=== PATIENT | male | born 1995 | race Caucasian/White ===

== ENCOUNTER 2023-04-07 09:40 | Day surgery (SDC) | payer BC ==
[2023-04-02 11:51] VITALS: BMI 25.1
--- NOTE | 2023-04-06 10:35 | P.HPOR ---
History of Present Illness H&P Date: 04/06/23 Subjective: This is a 28 year old male that presents today for initial evaluation regarding a 3 month history of a progressively increasing in size soft tissue mass located on the dorsal aspect of the ring finger. He notes the area on the back of the ring finger has become tender at night time and feels very tight due to the size of the mass. He denies any injury or inciting event. He works for a [employer] business. Physical Examination: RUE: AIN/PIN/Radial/Ulnar/Median motor intact. Radial/Ulnar/Median SILT. 2+/4 Radial/Ulnar pulses palpated. 5/5 APB, 5/5 FDI. Negative Finkelsteins, negative CMC grind, negative Durkan's compression. 2cm round soft tissue mass that is mobile on dorsal aspect of ring finger proximal phalanx. Able to make a full fist. Imaging: X-Rays of the right hand 3V taken in office today demonstrate no abnormality Impression: 1.) Right ring finger soft tissue mass Plan: Diagnosis and treatment options were discussed with the patient. We discussed he has a soft tissue mass present on the dorsal aspect of his ring finger that is becoming increasingly bothersome and he would like to proceed with right ring finger soft tissue mass excision. Risks and benefits of surgery including bleeding, infection, damage to surrounding tissue, need for further surgery, residual numbness were discussed and the patient wished to go forward with surgery. CC: Luann Beebe M.D. -Myron Castanon DO Orthopedic Hand/Upper Extremity Surgeon Past Medical History Past Medical History: No Reported History Additional Past Medical History / Comment(s): MASS ON RT RING FINER History of Any Multi-Drug Resistant Organisms: None Reported Past Surgical History: No Surgical Hx Reported Past Anesthesia/Blood Transfusion Reactions: No Reported Reaction Smoking Status: Current every day smoker - Past Family History Mother Family Medical History: No Reported History Medications and Allergies Home Medications Medication Instructions Recorded Confirmed Type No Known Home Medications 08/18/14 04/02/23 History Allergies Allergy/AdvReac Type Severity Reaction Status Date / Time No Known Allergies Allergy Verified 04/02/23 11:27 Physical Examination Osteopathic Statement: *. No significant issues noted on an osteopathic structural exam other than those noted in the History and Physical/Consult.
[~2023-04-07 09:40] MED LIST: DEXAMETHASONE SOD PHOSPHATE 4 MG/ML 1 ML VIAL IV ONE; HYDROmorphone 0.5 MG/0.5 ML SYRINGE IVP PRN; LACTATED RINGERS 1,000 ML IV SCH; LIDOCAINE 1% (10MG/ML) FOR IV START INTRADERMA PRN; MIDAZOLAM 2 MG/2 ML VIAL IV PRN; ONDANSETRON 4 MG/2 ML VIAL IVP ONE; Pre Op ABX Message 1 EACH MISC MISCELLANE ONE
[2023-04-07 10:14] VITALS: TEMP 97.6
[2023-04-07] MEDS ORDERED: PROPOFOL 10 MG/ML 20 ML VIAL IV ONE (11:46)
[2023-04-07] MEDS ORDERED: LIDOCAINE 1% INJ 10MG/ML (20 ML MDV) ONE (11:46)
[2023-04-07] MEDS ORDERED: MIDAZOLAM 2 MG/2 ML VIAL ONE (11:46)
[2023-04-07] MEDS ORDERED: fentaNYL (PF) 50 MCG/ML 2 ML AMP ONE (11:46)
[2023-04-07] MEDS ORDERED: BUPIVACAINE (PF) 0.5% 30 ML VIAL SQ ONE ×2 (11:55)
[2023-04-07] MEDS ORDERED: LIDOCAINE 1% INJ 10MG/ML (20 ML MDV) SQ ONE ×2 (11:55)
--- NOTE | 2023-04-07 12:16 | P.OP ---
Date of Procedure: 04/07/23 Preoperative Diagnosis: Right ring finger soft tissue mass Postoperative Diagnosis: Right ring finger soft tissue mass Procedure(s) Performed: Right ring finger soft tissue mass excision Anesthesia: MAC Surgeon: Myron Castanon Industrial Service Technician #1: Tariq Serrano Estimated Blood Loss (ml): 0 Pathology: other (Right ring finger soft tissue mass) Condition: stable Disposition: PACU Description of Procedure: This is a 28 year old male who presents today for a right ring finger soft tissue mass excision. Risks and benefits of surgery were discussed with the patient including bleeding, damage to surrounding tissue, infection, need for further surgery as well as risks of anesthesia including pulmonary embolism and even and the patient wished to proceed with surgical intervention. The patient was seen in the pre-operative area by myself. Consent and H&P were completed and updated. The correct extremity was marked in the pre-operative area by myself and all other questions were answered. Operative Narrative: The patient was brought to the operating room by the department of anesthesia. They remained on the portable stretcher and a rolling hand table was brought to the side of the operative extremity. Pre-operative time out was performed indicating the correct patient, procedure and laterality. All in the room agreed. Pre-operative antibiotics were given prior to skin incision. The patient was then drifted off to sleep by the department of anesthesia. Digital block was performed with 7cc's of 0.5% Lidocaine and 1% lidocaine in a 50:50 mixture. A nonsterile tourniquet was then applied to the operative extremity and the right upper extremity was then prepped and draped in normal sterile fashion. The operative extremity was the exsanguinated with an esmarch bandage and the tourniquet was inflated to 250mmHg. Curvilinear incision was made over the dorsal aspect of the right ring finger overlying the area of prominence with a 15 blade scalpel. Sharp dissection was then carried out to separate underlying soft tissue adhesions from the mass. The mass appear to be shelby colored 3x4cm and full of keratin and sitting on top of the extensor mechanism. This was sharply excised while leaving the extensor mechanism intact. The wound was closed with interrupted 4-0 nylon suture in a horizontal mattress fashion. Soft dressing consisting of Adaptic 4 x 4's and a soft wrap was applied. The patient was then woken by the department of anesthesia and transferred to PACU in stable condition. Tariq GARCIA was present to assist in major portions of the procedure. Myron Castanon D.O. Orthopedic Hand/Upper Extremity Surgeon
[2023-04-07 12:47] VITALS: BP 121/76; RESP 20
[2023-04-07 12:48] VITALS: PULSE 75
== END 2023-04-07 13:12 | disposition home or self-care (01) ==
LOC: OR 09:40
PROVIDERS: ATTEND Orthopaedic Surgery Hand Surgery
DX: L72.0 Epidermal cyst (principal); F17.200 Nicotine dependence, unspecified, uncomplicated
CPT/HCPCS: 26111; 88304; J2250; J1100; J2405; J2001; J3010; J2704; J0665